=== PATIENT | male | born 1940 | race Caucasian/White ===

== ENCOUNTER → 2020-11-04 | Outpatient (CLI) | payer OTHER, MEDICARE ==
[~2020-11-04] MED LIST: ASPIRIN EC81 M1 PO; ASPIRIN325 PO; COQ-10100 MG PO; FISH OIL 1,0001 EAC9 PO; LIPITOR10 MG PO; LOTENSIN20 MG PO; METFORMIN HCL500 MG PO; VITAMIN B COMP1 EACH PO; VITAMIN C1000 MG PO; VITAMIN D325 MC5 PO; XANAX1 MG PO; ZINC CHELATE50 MG PO
== END ==
LOC: LAB 11:59
PROVIDERS: ATTEND Student in an Organized Health Care Education/Training Program
DX: Z01.812 Encounter for preprocedural laboratory examination (principal); Z20.822 Contact with and (suspected) exposure to COVID-19

== ENCOUNTER → 2020-11-06 | Outpatient (CLI) | payer OTHER, MEDICARE ==
[~2020-11-06] VITALS: Ht 167.6 cm; Wt 68.0 kg
--- NOTE | 2020-11-08 10:23 | P ---
[facility] [place] [address] PROCEDURE REPORT Name: LUDIVINA BRAXTON Room #: REG [facility].#: [id number] Admission: 11/06/20 Attend Phys: Joao Sprague Discharge: Date of : 44 Report #: [id number] THIS REPORT FOR: cc: FAM - Family physician unknown FAM - Family physician unknown Joao Sandoval MD ~ cc: Johnathan Ndiaye MD DATE OF SERVICE: 11/06/2020 PROCEDURE PERFORMED: Colonoscopy with polypectomies. HISTORY OF PRESENT ILLNESS: The patient is a 80-year-old male with a history of colon polyps. He is here for routine 5-year followup. He does report a history of constipation. He does have a family history of colon cancer in his brother. Plan is for colonoscopy. DESCRIPTION OF PROCEDURE: The risks and benefits of the procedure were explained to the patient. Those risks including but not limited to bleeding, perforation and the risk of sedation. He understood these risks and gave informed consent. Sedation was given using propofol per anesthesia. Next, a digital rectal exam was initially performed, which was normal. Next, using a standard Olympus colonoscope, the scope was placed in the patient's anus and advanced under direct vision to the cecum. The overall prep was good. The cecum and ileocecal valve were normal in appearance. In the ascending colon, 2 polyps were noted. The smallest was 4 mm in size and removed with cold forceps. The larger was 6 and removed by snare cautery. In the transverse colon, there was a 6 mm sessile polyp also removed by snare cautery. Descending colon, 8 mm sessile polyp removed by snare cautery. A few small scattered diverticula noted in the sigmoid colon, otherwise normal. The rectal mucosa was normal. On retroflexion, no abnormalities were noted. The scope was then withdrawn and the procedure terminated. The patient tolerated the procedure well. IMPRESSION: 1. Small colonic polyps. 2. Sigmoid diverticulosis. 3. Otherwise, normal colonoscopy. RECOMMENDATIONS: 1. Await biopsy results. 2. Consider repeat colonoscopy in [address] [address] PROCEDURE REPORT Name: LUDIVINA BRAXTON Room #: REG [facility].#: [id number] Admission: 11/06/20 Attend Phys: Joao Sprague Discharge: Date of : 44 Report #: [id number] Thank you for allowing me to participate in his care. <ELECTRONICALLY SIGNED> By: Joao Sandoval MD 11/08/20 1023 1018 [id number] Joao Sandoval MD /nt
--- NOTE | 2020-11-08 16:58 | PATH ---
[facility] [place] [address] PATHOLOGY RPT PROCEDURE Name: UMESH BRAXTON Room #: REG CL M.R.#: [id number] Admission: 11/06/20 Date of : 44 Discharge: Report #: [id number] Path Case #: [id number] [facility] Accession Number: [id number] . 01 Material submitted: . PART A: colon - ASCENDING COLON POLYPS. Modifiers: ascending PART B: colon - TRANSVERSE COLON POLYP. Modifiers: transverse PART C: colon - DESCENDING COLON POLYP. Modifiers: descending . 01 Clinical history: . COLONOSCOPY HX OF POLYPS . 02 Diagnosis: A. Polyps, ascending colon polyps, endoscopic biopsy: - All fragments showing tubular adenoma. - Negative for high-grade dysplasia. . B. Polyp, transverse colon polyp, endoscopic biopsy: - Tubular adenoma. - Negative for high-grade dysplasia. . C. Polyp, descending colon polyp, endoscopic biopsy: - Inflamed tubular adenoma with reactive changes. - Negative for high-grade dysplasia. (IUV:stacie; 11/07/2020) QMS 11/07/2020 1245 Local . 02 Electronically signed: . Kendra Rey MD, Pathologist NPI- [id number] . 01 Gross description: . A. The specimen is received in formalin, labeled "Umesh Braxton, ascending colon polyp". Received are 3 segments of pale aden tissue ranging in size from 0.1-0.8 cm in maximum dimension. The specimen is submitted entirely in cassette A1. . B. The specimen is received in formalin, labeled "Umesh Braxton, transverse colon polyp". Received is a single segment of pale aden tissue measuring 0.8 cm in maximum dimensions. The specimen is submitted entirely in cassette B1. . C. The specimen is received in formalin, labeled "Umesh Braxton, descending colon polyp". Received is a single segment of pale aden tissue measuring 1.2 cm in maximum dimensions. The specimen is submitted entirely in [place]. [place] [address] PATHOLOGY RPT PROCEDURE Name: UMESH BRAXTON RUTH [id number]: 11/[facility]/20 Date of : 44 Discharge: Report #: [id number] Path Case #: [id number] ([facility]; 11/06/2020) NRI/NRI 11/06/2020 [facility] . 02 Pathologist provided ICD-10: D12.2, D12.3, D12.4 . 02 CPT . 015719, [id number], 881626 Specimen Comment: A courtesy copy of this report has been sent to [phone], [phone] Specimen Comment: [id number] Specimen Comment: Report sent to / DR MEYER Specimen Comment: A duplicate report has been generated due to demographic updates. Performed at: [address], [place] [id number] MD Jonah Singh MD Phone: [phone] Performed at: [address] [id number] MD Kendra Rey MD Phone: [phone]
== END | disposition home or self-care (01) ==
LOC: GI
PROVIDERS: ATTEND Specialist
DX: Z12.11 Encounter for screening for malignant neoplasm of colon (principal); Z86.010 Personal history of colon polyps; Z80.0 Family history of malignant neoplasm of digestive organs; D12.2 Benign neoplasm of ascending colon; D12.3 Benign neoplasm of transverse colon; D12.4 Benign neoplasm of descending colon; K57.30 Diverticulosis of large intestine without perforation or abscess without bleeding; E11.9 Type 2 diabetes mellitus without complications; E78.5 Hyperlipidemia, unspecified; G47.30 Sleep apnea, unspecified; Z98.890 Other specified postprocedural states; Z79.899 Other long term (current) drug therapy; Z87.442 Personal history of urinary calculi; Z87.891 Personal history of nicotine dependence; Z85.828 Personal history of other malignant neoplasm of skin
CPT/HCPCS: 62110; 62900